=== PATIENT | male | born 1965 | race Caucasian/White ===

== ENCOUNTER 2017-07-26 05:22 | Emergency (ER) | payer OTHER ==
[~2017-07-26] VITALS: Ht 172.7 cm; Wt 68.8 kg
[2017-07-26 05:48] LABS: HEMATOCRIT 45.1 % (38.0-50.0); MCH 30.9 PG (29.0-34.0); MCHC 33.3 G/DL (30.0-36.0); PLATELET COUNT 178 K/uL (156-360); RBC DIS.WIDTH-CV 12.6 % (11.8-14.6); RBC DIS.WIDTH-SD 43.5 % (39-53); RED BLOOD COUNT 4.85 M/uL (4.00-5.50); WHITE BLOOD COUNT 9.5 K/uL (4.1-10.2)
[2017-07-26 05:58] LABS: ALBUMIN 4.1 g/dL (3.2-4.8); CHLORIDE 108 mEq/L (99-109); POTASSIUM 3.7 mEq/L (3.7-5.4); SODIUM 139 mEq/L (136-147)
[2017-07-26 06:01] LABS: GLUCOSE 92 mg/dL (70-99); TOTAL PROTEIN 6.4 g/dL (6.4-8.3)
[2017-07-26 06:02] LABS: TOTAL BILIRUBIN 1.3 mg/dL (0.0-1.0)
[2017-07-26 06:03] VITALS: BP 111/76
[2017-07-26 06:04] LABS: ALKALINE PHOSPHATASE 107 IU/L (3-129); CREATININE 1.1 mg/dL (0.6-1.3); GFR ESTIMATE (CALCULATED) > 59 mL/min/ (58.99-99999)
[2017-07-26 06:05] LABS: UREA NITROGEN (BUN) 12 mg/dL (9-23)
[2017-07-26 06:06] LABS: AST (GOT) 16 IU/L (2-34)
[2017-07-26 06:07] LABS: ALT (GPT) 11 IU/L (3-49)
[2017-07-26 06:22] LABS: APPEARANCE CLEAR ((CLEAR)); BACTERIA NONE SEEN /HPF; BILIRUBIN NEGATIVE; BLOOD SMALL; COLOR YELLOW ((YELLOW)); EPITHELIAL CELLS NONE SEEN /HPF; GLUCOSE (STRIP) NEGATIVE; KETONES NEGATIVE; LEUKOCYTES NEGATIVE; MUCUS NONE SEEN /LPF; NITRITE NEGATIVE; PROTEIN (STRIP) NEGATIVE; RED BLOOD CELLS 0-5 /HPF (0-5); SPECIFIC GRAVITY 1.014 (1.000-1.030); UCUL ADDED? NO; UROBILINOGEN 0.2 MG/DL (0.2-1.0); WHITE BLOOD CELLS 0-5 /HPF (0-5)
[2017-07-26] MEDS ORDERED: CIPRO500 MG PO (07:08)
[2017-07-26] MEDS ORDERED: BACTRIM,SEPT1 TABLET PO (07:16)
== END 2017-07-26 07:38 | disposition home or self-care (01) ==
LOC: EME 05:22
DX: K57.32 Diverticulitis of large intestine without perforation or abscess without bleeding (principal); Z87.891 Personal history of nicotine dependence
CPT/HCPCS: 74177; 80053; 81003; 85027; 99281; 99284; J7040